=== PATIENT | male | born 1980 | race Hispanic/Latino ===

== ENCOUNTER 2019-03-20 13:10 | Outpatient (CLI) | payer BC ==
--- NOTE | 2019-03-20 15:21 | CT ---
CT CHEST WITHOUT IV CONTRAST HISTORY: COPD COMPARISON: None FINDINGS: Absence of IV contrast reduces the sensitivity of the exam. [place] for the evaluation of mediastinal, h ilar and vascular structures. No pleural or pericardial effusions are seen. No pneumothoraces or focal areas of consolidation are i dentified. There is a calcified granuloma in the left upper lobe. There is a 7 mm solid perifissural nodule in the left lower lobe. Also noted is a peripheral 6 mm alfredo id nodule in the left lower lobe. There is a 4 mm solid peripheral nodule in the right upper lobe. IMPRESSION: Bilateral lung nodules. RECOMMENDATION: A follow-up CT scan of the chest is recommended in 3 months.
== END 2019-03-20 13:11 | disposition home or self-care (01) ==
LOC: BICCT 13:10
PROVIDERS: ATTEND Specialist
DX: J44.9 Chronic obstructive pulmonary disease, unspecified (principal); R91.8 Other nonspecific abnormal finding of lung field
CPT/HCPCS: 71250